=== PATIENT | male | born 1955 | race Caucasian/White ===

== ENCOUNTER 2018-01-26 21:47 | Emergency (ER) | payer OTHER ==
[2018-01-26 22:00] VITALS: BP 119/63; PULSE 81; RESP 16; TEMP 97.8; O2SAT 99
--- NOTE | 2018-01-26 22:06 | PD ---
HPI Chief Complaint: Back pain Time Seen by Provider: 21:58 Travel History International Travel<30 days: No Contact w/Intl Traveler<30days: No Traveled to known affect area: No History of Present Illness HPI 62-year-old male complains of low back pain. Patient states that he fell off a 5 foot ladder and landed on the right buttock this afternoon. Patient states that he landed on the grass. Patient denies hitting his head. Patient denies loss of consciousness. Patient denies any headache or neck pain. Patient denies any chest pain or shortness of breath. Patient denies abdominal pain. Patient complains of aching low back pain. Patient denies any extremity injury. Patient denies any focal weakness or numbness of the extremity. PFSH Social History Tobacco Use: No Allergies-Medications (Allergen,Severity, Reaction): Coded Allergies: No Known Allergies (Unverified , 01/26/18) Reported Meds & Prescriptions Reported Meds & Active Scripts Active Ultram (Tramadol HCl) 50 Mg Tab 50 Mg PO Q6H PRN Reported Aspirin 81 Mg Chew 81 Mg CHEW DAILY Nitroglycerin SL (Nitroglycerin) 0.4 Mg Subl 0.4 Mg SL DIRECTED PRN ONE TABLET UNDER THE TONGUE NEEDED FOR CHEST PAIN, MAY REPEAT EVERY FIVE MINUTES FOR A TOTAL OF 3 DOSES OR CALL 911 IF NO RELIEF Metoprolol Succinate ER 24 HR (Metoprolol Succinate) 25 Mg Tab 12.5 Mg PO DAILY Metoprolol Succinate ER 24 HR (Metoprolol Succinate) 25 Mg Tab 25 Mg PO DAILY Brilinta (Ticagrelor) 90 Mg Tab 90 Mg PO BID Coq-10 (Coenzyme Q10 (Ubidecarenone)) 50 Mg Cap Scarlett-D 24 Hour Allergy (Fexofenadine-Pseudoephedrine ER 24 HR) 180-240 Winter 1 Tab PO DAILY Atorvastatin (Atorvastatin Calcium) 20 Mg Tab 20 Mg PO HS Zephrex-D (Pseudoephedrine HCl) 30 Mg Tab Metformin (Metformin HCl) 1,000 Mg Tab 1,000 Mg PO BIDPC Review of Systems General / Constitutional: No: Fever Eyes: No: Visual changes HENT: No: Headaches Cardiovascular: No: Chest Pain or Discomfort Respiratory: No: Shortness of Breath Gastrointestinal: No: Abdominal Pain Genitourinary: No: Dysuria Musculoskeletal: No: Pain Skin: No Rash Neurologic: No: Weakness Psychiatric: No: Depression Endocrine: No: Polydipsia Hematologic/Lymphatic: No: Easy Bruising Physical Exam Narrative GENERAL: Well-nourished, well-developed patient. SKIN: Focused skin assessment warm/dry. HEAD: Normocephalic. EYES: No scleral icterus. No injection or drainage. NECK: Supple, trachea midline. No JVD or lymphadenopathy. No tenderness on palpation of the cervical spine. CARDIOVASCULAR: Regular rate and rhythm without murmurs, gallops, or rubs. RESPIRATORY: Breath sounds equal bilaterally. No accessory muscle use. GASTROINTESTINAL: Abdomen soft, non-tender, nondistended. MUSCULOSKELETAL: No cyanosis, or edema. BACK: Patient has mild tenderness to palpation paraspinal area of the lumbar spine, without obvious deformity. No CVA tenderness. Neurologic exam normal. Data Data Last Documented VS Vital Signs Date Time Temp Pulse Resp B/P (MAP) Pulse Ox O2 Delivery O2 Flow Rate FiO2 01/27/18 04:40 81 16 115/67 (83) 99 01/26/18 22:00 97.8 Orders Orders Complete Blood Count With Diff (01/26/18 22:03) Comprehensive Metabolic Panel (01/26/18 22:03) Prothrombin Time / Inr (Pt) (01/26/18 22:03) Act Partial Throm Time (Ptt) (01/26/18 22:03) Spine, Lumbar - Ltd (Ap & Lat) (01/26/18 22:03) Iv Access Insert/Monitor (01/26/18 22:03) Ecg Monitoring (01/26/18 22:03) Oximetry (01/26/18 22:03) Ct Lumb Spine W Iv Contrast (01/27/18 21:58) Ct Abd/Pel W Iv Contrast(Rout) (01/27/18 22:03) Iohexol 350 Inj (Omnipaque 350 Inj) (01/27/18 02:45) Splint Or Brace Apply/Monitor (01/27/18 03:36) Ed Discharge Order (01/27/18 03:43) Tramadol (Ultram) (01/27/18 04:30) Brace Lso-Orthosis (01/27/18 ) Brace Thoracic Ext (01/27/18 ) Labs Laboratory Tests Test 01/26/18 22:22 01/27/18 01:16 White Blood Count 8.3 TH/MM3 Red Blood Count 4.35 MIL/MM3 Hemoglobin 12.6 GM/DL Hematocrit 38.4 % Mean Corpuscular Volume 88.1 FL Mean Corpuscular Hemoglobin 28.9 PG Mean Corpuscular Hemoglobin Concent 32.8 % Red Cell Distribution Width 14.2 % Platelet Count 239 TH/MM3 Mean Platelet Volume 9.4 FL Neutrophils (%) (Auto) 77.0 % Lymphocytes (%) (Auto) 12.8 % Monocytes (%) (Auto) 9.1 % Eosinophils (%) (Auto) 0.6 % Basophils (%) (Auto) 0.5 % Neutrophils # (Auto) 6.4 TH/MM3 Lymphocytes # (Auto) 1.1 TH/MM3 Monocytes # (Auto) 0.8 TH/MM3 Eosinophils # (Auto) 0.1 TH/MM3 Basophils # (Auto) 0.0 TH/MM3 CBC Comment DIFF FINAL Differential Comment Prothrombin Time 11.2 SEC Prothromb Time International Ratio 1.1 RATIO Activated Partial Thromboplast Time 22.9 SEC Blood Urea Nitrogen 16 MG/DL Creatinine 1.10 MG/DL Random Glucose 87 MG/DL Total Protein 6.3 GM/DL Albumin 3.4 GM/DL Calcium Level 8.3 MG/DL Alkaline Phosphatase 71 U/L Aspartate Amino Transf (AST/SGOT) 26 U/L Alanine Aminotransferase (ALT/SGPT) 29 U/L Total Bilirubin 0.5 MG/DL Sodium Level 143 MEQ/L Potassium Level 4.1 MEQ/L Chloride Level 109 MEQ/L Carbon Dioxide Level 26.7 MEQ/L Anion Gap 7 MEQ/L Estimat Glomerular Filtration Rate 68 ML/MIN [facility] Medical Decision Making Medical Screen Exam Complete: Yes Emergency Medical Condition: Yes Interpretation(s) Last Impressions Lumbar Spine X-Ray 01/26/182202 Signed Impressions: Service Date/Time: Friday, January 26, 2018 22:21 - CONCLUSION: 1. Acute mild compression deformity involving L1. 2. Degenerative changes throughout the lumbar spine. Zahc Esquivel MD Differential Diagnosis Differential diagnosis including spine injury, intra-abdominal injury. Narrative Course 62-year-old male with low back pain. Status post falling off a 5 foot ladder. Patient had transient hypotension at another ED. Patient was transferred to [place] for evaluation. Patient's vital signs stable now. CT abdomen lumbar spine shows fracture L1. TLSO brace was ordered. [employer] not available. Patient was advised to come back in a.m. for fitting with the brace. Diagnosis Primary Impression: Fracture of L1 vertebra Qualified Codes: S32.010A - Wedge compression fracture of first lumbar vertebra, initial encounter for closed fracture Patient Instructions: General Instructions Additional Instructions: Back brace as directed. Follow-up with neurosurgeon. Take medication as needed for pain. Come back in a.m. for back brace. Med/Other Pt SpecificInfo: Prescription(s) given Scripts Tramadol (Ultram) 50 Mg Tab 50 MG PO Q6H Y for PAIN, #20 TAB 0 Refills Prov: Camilo Foote MD 01/27/18 Disposition: 01 DISCHARGE HOME Condition: Stable Camilo Foote MD January 26, 2018 22:06
[2018-01-26] MEDS ORDERED: FEXO1TAB97 PO (22:10)
[2018-01-26] MEDS ORDERED: NITR1SUB3 SL (22:10)
[2018-01-26] MEDS ORDERED: METF1000 PO (22:10)
[2018-01-26] MEDS ORDERED: [UNRECOGNIZED DRUG - CODE] (22:10)
[2018-01-26] MEDS ORDERED: ASPI-516 CHEW (22:10)
[2018-01-26] MEDS ORDERED: BRIL90TA PO (22:10)
[2018-01-26] MEDS ORDERED: ATOR20TA15 PO (22:10)
[2018-01-26] MEDS ORDERED: METO1TAB42 PO (22:10)
[2018-01-26] MEDS ORDERED: COQ-50CA2 (22:10)
[2018-01-26 22:47] LABS: AUTOMATED NEUTROPHIL # 6.4 TH/MM3 (1.8-7.7); BASOPHIL % 0.5 % (0.0-2.0); EOSINOPHIL # 0.1 TH/MM3 (0-0.4); EOSINOPHIL % 0.6 % (0.0-4.0); HEMATOCRIT 38.4 % (39.0-51.0); HEMOGLOBIN 12.6 GM/DL (13.0-17.0); LYMPH % 12.8 % (9.0-44.0); LYMPHOCYTE # 1.1 TH/MM3 (1.0-4.8); MEAN CELL VOLUME 88.1 FL (80.0-100.0); MEAN CORPUSCULAR HEMOGLOBIN 28.9 PG (27.0-34.0); MEAN CORPUSCULAR HGB CONC 32.8 % (32.0-36.0); MEAN PLATELET VOLUME 9.4 FL (7.0-11.0); MONO % 9.1 % (0.0-8.0); MONOCYTE # 0.8 TH/MM3 (0-0.9); PLATELET COUNT 239 TH/MM3 (150-450); RED BLOOD COUNT 4.35 MIL/MM3 (4.50-5.90); RED CELL DISTRIBUTION WIDTH 14.2 % (11.6-17.2); WHITE BLOOD COUNT 8.3 TH/MM3 (4.0-11.0)
[2018-01-26 23:00] LABS: INTERNATIONAL NORMALIZED RATIO 1.1 RATIO; PROTHROMBIN TIME - PATIENT 11.2 SEC (9.8-11.6)
--- NOTE | 2018-01-26 23:02 | RADRPT ---
EXAM DATE/TIME: 01/26/2018 22:21 [facility] COMPARISON: No previous studies available for comparison. INDICATIONS : Patient fell off of ladder and complains of lower back pain. MEDICAL HISTORY : None. SURGICAL HISTORY : None. ENCOUNTER: Initial ACUITY: 1 day PAIN SCORE: 8/10 LOCATION: L-Spine FINDINGS: There is an acute mild compression deformity involving L1. No spondylolisthesis or spondylolysis is n oted. Degenerative changes are noted throughout the lumbar spine. CONCLUSION: 1. Acute mild compression deformity involving L1. 2. Degenerative changes throughout the lumbar spine. Zach Esquivel MD on January 26, 2018 at 22:59 Board Certified Radiologist. This report was verified electronically.
[2018-01-27 01:59] LABS: ALBUMIN 3.4 GM/DL (3.4-5.0); ALT (GPT) 29 U/L (12-78); AST (GOT) 26 U/L (15-37); BICARBONATE 26.7 MEQ/L (21.0-32.0); BLOOD UREA NITROGEN 16 MG/DL (7-18); CALCIUM 8.3 MG/DL (8.5-10.1); CHLORIDE 109 MEQ/L (98-107); GLOMERULAR FILTRATION RATE 68 ML/MIN (>89); GLUCOSE,RANDOM 87 MG/DL (74-106); SODIUM (NA) 143 MEQ/L (136-145)
[2018-01-27 02:01] LABS: ALKALINE PHOSPHATASE 71 U/L (45-117); TOTAL BILIRUBIN ADULT 0.5 MG/DL (0.2-1.0); TOTAL PROTEIN 6.3 GM/DL (6.4-8.2)
[2018-01-27] MEDS ORDERED: IOHEXOL 350 MG/ML 10 ML VIAL (for RAD DIAG) IVCONTRAST ONE (02:45)
--- NOTE | 2018-01-27 03:01 | RADRPT ---
EXAM DATE/TIME: 01/27/2018 02:42 [facility] COMPARISON: No previous studies available for comparison. INDICATIONS : Trauma. Fell off 5 foot ladder and landed on buttocks. IV CONTRAST: 96 cc Omnipaque 350 (iohexol) IV ORAL CONTRAST: No oral contrast ingested. RADIATION DOSE: 11.16 CTDIvol (mGy) MEDICAL HISTORY : Myocardial infarction. Diabetes mellitus type 2. SURGICAL HISTORY : None. ENCOUNTER: Initial ACUITY: 1 day PAIN SCALE: 5/10 LOCATION: Abdomen. TECHNIQUE: Volumetric scanning of the abdomen and pelvis was performed. Using automated exposure control and ad justment of the mA and/or kV according to patient size, radiation dose was kept as low as reasonably achievable to obtain optimal diagnostic quality images. DICOM format image data is available electro nically for review and comparison. FINDINGS: LOWER LUNGS: The visualized lower lungs are clear. LIVER: Homogeneous density without lesion. There is no dilation of the biliary tree. No calcified gallston es. SPLEEN: Normal size without lesion. PANCREAS: Within normal limits. KIDNEYS: Normal in size and shape. There is no mass, stone or hydronephrosis. ADRENAL GLANDS: Within normal limits. VASCULAR: There is no aortic aneurysm. BOWEL/MESENTERY: Distal colonic diverticula. No abnormal dilatation, wall thickening or focal inflammatory changes. ABDOMINAL WALL: Within normal limits. RETROPERITONEUM: There is no lymphadenopathy. BLADDER: No wall thickening or mass. REPRODUCTIVE: Within normal limits. INGUINAL: There is no lymphadenopathy or hernia. MUSCULOSKELETAL: There is a fracture involving the superior endplate of L1 vertebral body with slight depression. Ther e is no evidence of retropulsion. There is no finding to suggest possible instability. The bony eleme nts are otherwise atraumatic CONCLUSION: Superior endplate fracture of L1 with mild depression Leandro Broussard MD on January 27, 2018 at 2:53 Board Certified Radiologist. This report was verified electronically.
--- NOTE | 2018-01-27 03:04 | RADRPT ---
EXAM DATE/TIME: 01/27/2018 02:42 [facility] COMPARISON: No previous studies available for comparison. INDICATIONS : Trauma; patient fell from a ladder. IV CONTRAST: 96 cc Omnipaque 350 (iohexol) IV ; Cumulative dose for multiple exams. RADIATION DOSE: CTDIvol (mGy) ; Reconstructed from previous dataset, no dose MEDICAL HISTORY : Myocardial infarction. Diabetes mellitus type 2. SURGICAL HISTORY : None. ENCOUNTER: Initial ACUITY: 1 day PAIN SCALE: 7/10 LOCATION: lower back TECHNIQUE: Volumetric scanning of the lumbar spine was performed. Multiplanar reconstructions in the sagittal, coronal and oblique axial planes were performed. Using automated exposure control and adjustment of the mA and/or kV according to patient size, radiation dose was kept as low as reasonably achievable t o obtain optimal diagnostic quality images. DICOM format image data is available electronically for review and comparison. FINDINGS: There is a fracture of the superior endplate of L1 vertebral body anteriorly with slight depression a nd separation of a small anterior corner fragment without significant displacement. There is no evide nce of retropulsion. No malalignment is otherwise present. The vertebrae are otherwise intact. The po sterior elements are intact. There are mild degenerative changes present. No significant paraspinal h ematoma. CONCLUSION: Fracture of the superior endplate of L1 Leandro Broussard MD on January 27, 2018 at 2:59 Board Certified Radiologist. This report was verified electronically.
[2018-01-27] MEDS ORDERED: TRAM50 PO (03:42)
[2018-01-27] MEDS ORDERED: traMADol HCL 50 MG TAB PO ONE (04:30)
[2018-01-27 04:40] VITALS: BP 115/67; PULSE 81; RESP 16; O2SAT 99
== END 2018-01-27 04:45 | disposition home or self-care (01) ==
LOC: NEPE 21:47
DX: S32.010A Wedge compression fracture of first lumbar vertebra, initial encounter for closed fracture (principal); W11.XXXA Fall on and from ladder, initial encounter
CPT/HCPCS: 72100; 72132; 74177; 80053; 85025; 85610; 85730; 99284; L0200; L0484; Q9967